=== PATIENT | female | born 1950 ===

== ENCOUNTER 2018-07-08 14:33 | Emergency (ER) | payer OTHER ==
[~2018-07-08] VITALS: Ht 162.6 cm; Wt 72.6 kg
[~2018-07-08 14:33] MED LIST: ADVIL200 M1 PO; CIPRO500 MG PO; FIORICET 50-321 EACH PO; IMODIUM2 MG PO; LEVAQUIN500 MG PO; PYRIDIUM200 MG PO
[2018-07-08] MEDS ORDERED: MEDROLPACK PO (20:19)
== END 2018-07-08 20:52 | disposition home or self-care (01) ==
LOC: ER 14:33
DX: T61.771A Other fish poisoning, accidental (unintentional), initial encounter (principal); R53.81 Other malaise; R19.7 Diarrhea, unspecified

== ENCOUNTER 2020-09-17 08:13 | Outpatient (CLI) | payer OTHER ==
[~2020-09-17 08:13] MED LIST changes: +MEDROLPACK PO
== END 2020-09-17 08:32 | disposition home or self-care (01) ==
LOC: SONOGRAMA 08:13
PROVIDERS: ATTEND Pathology Anatomic Pathology & Clinical Pathology
DX: E04.2 Nontoxic multinodular goiter (principal)